=== PATIENT | female | born 1970 | race Two or more races ===

== ENCOUNTER 2016-09-14 20:52 | Emergency (ER) | payer MEDICAID, OTHER ==
[~2016-09-14] VITALS: Ht 152.4 cm; Wt 69.4 kg
[~2016-09-14 20:52] MED LIST: QUET25TA PO
[2016-09-14] MEDS ORDERED: METOCLOPRAMIDE HCL 10 MG/2 ML VIAL IV ONE (22:30)
[2016-09-14] MEDS ORDERED: SUMATRIPTAN SUCCINATE 6 MG/0.5 ML VIAL SQ ONE ×2 (22:30→23:12)
[2016-09-14 22:49] LABS: BASOPHILS % (AUTO) 0.4 % (0.0-2.0); DIFF TOTAL % 100 %; EOSINOPHILS # (AUTO) 0.1 /CMM (0.0-0.7); HEMATOCRIT 36 % (33-45); HEMOGLOBIN 11.9 g/dL (11.5-14.8); LYMPHOCYTES # (AUTO) 1.4 /CMM (0.8-4.8); LYMPHOCYTES % (AUTO) 19.1 % (20.0-44.0); MEAN CORPUSCULAR HEMOGLOBIN 27 PG (26.0-33.0); MEAN CORPUSCULAR HGB CONC 33 g/dl (31.0-36.0); MEAN CORPUSCULAR VOLUME 82 fL (82-100); MONOCYTES # (AUTO) 0.7 /CMM (0.1-1.30); MONOCYTES % (AUTO) 8.8 % (2.0-12.0); NEUTROPHILS # (AUTO) 5.3 /CMM (1.8-8.9); NEUTROPHILS % (AUTO) 70.7 % (43.0-81.0); PLATELET COUNT (AUTO) 358 /CMM (150-450); RED BLOOD CELL COUNT(AUTO) 4.34 MIL/uL (4.0-5.2); WHITE BLOOD COUNT (AUTO) 7.4 K/uL (4.3-11.0)
[2016-09-14 22:52] LABS: KETONES,URINE NEGATIVE (NEGATIVE); LEUKOCYTE ESTERASE ,URINE 1+ (NEGATIVE)
[2016-09-14 23:01] LABS: ADD UA MICROSCOPIC YES; POTASSIUM 3.4 mmol/L (3.5-5.1)
[2016-09-14 23:12] LABS: ADD URINE CULTURE YES; RBC,URINE NONE SEEN /HPF (0-2); WBC,URINE 0-2 /HPF (0-3)
[2016-09-14] MEDS ORDERED: METOCLOPRAMIDE HCL 10 MG/2 ML VIAL ONE (23:12)
[2016-09-14] MEDS ORDERED: MECLIZINE HCL 25 MG TABLET ONE (23:55)
[2016-09-15] MEDS ORDERED: MECLIZINE HCL 25 MG TABLET PO ONE
[2016-09-15 00:55] VITALS: BP 150/86
== END 2016-09-15 00:56 | disposition home or self-care (01) ==
LOC: ER 21:02
DX: R42 Dizziness and giddiness (principal); I10 Essential (primary) hypertension; F20.9 Schizophrenia, unspecified; R82.79 Other abnormal findings on microbiological examination of urine
CPT/HCPCS: 36415; 70450; 80048; 81001; 85025; 87086; 96372; 96374; 99285; A4606; J2765; J3030; J8597; Z7610; 81000-TC

== ENCOUNTER 2020-01-21 11:16 | Emergency (ER) | payer OTHER ==
[~2020-01-21] VITALS: Ht 154.9 cm; Wt 80.7 kg
--- NOTE | 2020-01-21 11:30 | NUR ---
patient came in to the er c/o Dizziness x 2 days; felt " room-spinning sensation". On room air, breathing evenly and unlabored. connected to the monitor and pulse ox. kept comfortable, will continue to monitor accordingly.
[2020-01-21] MEDS ORDERED: MECLIZINE HCL 12.5 MG TABLET PO ONE (12:00)
[2020-01-21] MEDS ORDERED: IV NS 0.9% 1,000 ML BAG IV ONE (12:00)
[2020-01-21] MEDS ORDERED: ONDANSETRON HCL/PF 4 MG/2 ML VIAL IVP ONE (12:00)
[2020-01-21] MEDS ORDERED: ONDANSETRON HCL/PF 4 MG/2 ML VIAL ONE (12:01)
[2020-01-21] MEDS ORDERED: MECLIZINE HCL 25 MG TABLET ONE (12:01)
[2020-01-21 12:16] LABS: CALCIUM, SERUM 8.4 mg/dL (8.5-10.1); CREATININE 0.9 mg/dL (0.6-1.3); POTASSIUM 3.6 mmol/L (3.5-5.1)
--- NOTE | 2020-01-21 12:18 | NUR ---
PT BACK FROM CT
[2020-01-21 12:22] LABS: ALBUMIN 3.4 g/dL (3.4-5.0); BILIRUBIN,DIRECT 0.1 mg/dL (0.0-0.2); BILIRUBIN,TOTAL 0.2 mg/dL (0.2-1.0)
--- NOTE | 2020-01-21 12:27 | NUR ---
BIBS TO ER BED 16. AAOX4. NOT IN RESP DISTRESS. AMBULATORY. CAME IN FOR DIZZYNESS X 2 DAYS. PER PT THE ROOM IS SPINNING. PT IS REPORTING NAUSEA. MD WAS AT THE BEDSIDE FOR EVAL. ORDERS RECEIVED NOTED AND CARRIED OUT. IV LINE OBTAINED ON THE LFA 20G, BLOOD DRAWNA ND GIVEN TO RN REHAB AT BEDSIDE.
[2020-01-21 12:34] LABS: BASOPHILS % (AUTO) 0.2 % (0.0-2.0); EOSINOPHILS % (AUTO) 0.3 % (0.0-6.0); HEMATOCRIT 38 % (33-45); HEMOGLOBIN 12.2 g/dL (11.5-14.8); LYMPHOCYTES % (AUTO) 17.1 % (20.0-44.0); MEAN CORPUSCULAR HGB CONC 33 g/dl (31.0-36.0); MEAN CORPUSCULAR VOLUME 83 fL (82-100); MONOCYTES # (AUTO) 0.4 /CMM (0.1-1.30); MONOCYTES % (AUTO) 7.3 % (2.0-12.0); NEUTROPHILS # (AUTO) 4.3 /CMM (1.8-8.9); NEUTROPHILS % (AUTO) 75.1 % (43.0-81.0); PLATELET COUNT (AUTO) 319 /CMM (150-450); RED BLOOD CELL COUNT(AUTO) 4.55 MIL/uL (4.0-5.2); WHITE BLOOD COUNT (AUTO) 5.8 K/uL (4.3-11.0)
[2020-01-21 13:44] VITALS: BP 145/81
--- NOTE | 2020-01-21 13:44 | NUR ---
Patient discharged to home in stable condition. Written and verbal after care instructions given. Patient verbalizes understanding of instruction.IV removed. Catheter intact and site benign. Pressure and 4x4 applied to site. No bleeding noted.
== END 2020-01-21 13:44 | disposition home or self-care (01) ==
LOC: ER 11:24
DX: R42 Dizziness and giddiness (principal); E11.9 Type 2 diabetes mellitus without complications; I10 Essential (primary) hypertension; F20.9 Schizophrenia, unspecified; Z79.899 Other long term (current) drug therapy
CPT/HCPCS: 36415; 70450; 80048; 80076; 82962; 83690; 85025; 96361; 96374; 99284; J2405; J7030; J8597

== ENCOUNTER 2020-11-28 13:52 | Emergency (ER) | payer OTHER ==
[~2020-11-28] VITALS: Ht 160 cm; Wt 88.9 kg
--- NOTE | 2020-11-28 14:10 | NUR ---
BIB SELF C/O R EYE STYE FOR 5 DAYS. RATES PAIN 5/10. NO DISCHARGE FROM THE EYE NOTED. WILL CONTINUE TO MONITOR THE PATIENT.
[2020-11-28] MEDS ORDERED: CIPR5DRO EACHEYE (14:35)
[2020-11-28] MEDS ORDERED: DOXY100C2 PO (14:35)
[2020-11-28 14:46] VITALS: BP 136/88
--- NOTE | 2020-11-28 14:46 | NUR ---
Patient discharged to home in stable condition. Written and verbal after care instructions given. Patient verbalizes understanding of instruction. The patient left ER in stable condition.
== END 2020-11-28 14:48 | disposition home or self-care (01) ==
LOC: ER 13:57
DX: H00.013 Hordeolum externum right eye, unspecified eyelid (principal); I10 Essential (primary) hypertension; F20.9 Schizophrenia, unspecified; Z79.899 Other long term (current) drug therapy

== ENCOUNTER 2021-07-02 13:45 | Emergency (ER) | payer OTHER ==
[~2021-07-02] VITALS: Ht 154.9 cm; Wt 83.9 kg
[~2021-07-02 13:45] MED LIST changes: +CIPR5DRO EACHEYE; +DOXY100C2 PO
--- NOTE | 2021-07-02 13:45 | NUR ---
PT A/OX4 C/O BREAST PAIN X 2 DAYS,DENIES ANY TRAUMA.
[2021-07-02 15:47] LABS: BASOPHILS % (AUTO) 0.5 % (0.0-2.0); HEMATOCRIT 38 % (33-45); HEMOGLOBIN 12.8 g/dL (11.5-14.8); LYMPHOCYTES # (AUTO) 1.2 K/uL (0.8-4.8); LYMPHOCYTES % (AUTO) 12.9 % (20.0-44.0); MEAN CORPUSCULAR HGB CONC 33 g/dl (31.0-36.0); MEAN CORPUSCULAR VOLUME 83 fL (82-100); MONOCYTES # (AUTO) 0.7 K/uL (0.1-1.30); MONOCYTES % (AUTO) 7.3 % (2.0-12.0); NEUTROPHILS # (AUTO) 7.1 K/uL (1.8-8.9); NEUTROPHILS % (AUTO) 79.3 % (43.0-81.0); PLATELET COUNT (AUTO) 411 K/uL (150-450)
[2021-07-02 15:55] LABS: CALCIUM, SERUM 8.5 mg/dL (8.5-10.1); CARBON DIOXIDE 26 mmol/L (21-32); CHLORIDE 105 mmol/L (98-107); CREATININE 0.9 mg/dL (0.6-1.3); GLUCOSE 120 mg/dL (74-106); POTASSIUM 3.8 mmol/L (3.5-5.1); SODIUM SERUM 141 mmol/L (136-145); UREA NITROGEN, BLOOD 14 mg/dL (7-18)
[2021-07-02 16:05] LABS: ALANINE AMINOTRANSFERASE 19 U/L (12-78); ALBUMIN 3.7 g/dL (3.4-5.0); ALKALINE PHOSPHATASE 137 U/L (46-116); ASPARTATE AMINOTRANSFERASE 11 U/L (15-37); BILIRUBIN,TOTAL 0.2 mg/dL (0.2-1.0); LIPASE 96 U/L (73-393); TOTAL PROTEIN, SERUM 7.5 g/dL (6.4-8.2)
[2021-07-02] MEDS ORDERED: QUET100T PO (17:01)
--- NOTE | 2021-07-02 17:07 | NUR ---
Patient discharged to home in stable condition. RX Written and verbal after care instructions given. Patient verbalizes understanding of instruction. PT ambulatory with a steady gait
[2021-07-02 17:28] VITALS: BP 162/87
== END 2021-07-02 17:07 | disposition home or self-care (01) ==
LOC: ER 14:30
DX: R07.89 Other chest pain (principal); Z76.0 Encounter for issue of repeat prescription; I10 Essential (primary) hypertension; F20.9 Schizophrenia, unspecified; Z79.899 Other long term (current) drug therapy
CPT/HCPCS: 36415; 71045-TC; 80053-TC; 83690-TC; 84484-TC; 85025-TC

== ENCOUNTER 2022-09-01 12:43 | Emergency (ER) | payer OTHER ==
[~2022-09-01] VITALS: Ht 160 cm; Wt 86.2 kg
[~2022-09-01 12:43] MED LIST changes: +QUET100T PO
[2022-09-01 13:11] VITALS: BP 157/84
--- NOTE | 2022-09-01 13:11 | NUR ---
BIBS C/O HAVING A RASH AND ITCHING X1 WEEK. VITALS ARE WITHIN NORMAL LIMITS. AWAITING MD CRAVEN.
[2022-09-01] MEDS ORDERED: DIPHENHYDRAMINE HCL 12.5 MG/5 ML UDC PO ONE (14:30)
[2022-09-01] MEDS ORDERED: MINE105O TP (14:30)
[2022-09-01] MEDS ORDERED: HYDR15CR41 TP (14:30)
[2022-09-01] MEDS ORDERED: diphenhydrAMINE HCL 25 MG CAPSULE ONE (14:34)
== END 2022-09-01 14:36 | disposition home or self-care (01) ==
LOC: ER 12:45
DX: L30.9 Dermatitis, unspecified (principal); I10 Essential (primary) hypertension; F20.9 Schizophrenia, unspecified; Z79.899 Other long term (current) drug therapy
CPT/HCPCS: 99282; Q0163 ×2

== ENCOUNTER 2025-02-05 20:37 | Emergency (ER) | payer OTHER ==
[~2025-02-05] VITALS: Ht 154.9 cm; Wt 83.9 kg
[~2025-02-05 20:37] MED LIST changes: +HYDR15CR41 TP; +MINE105O TP
[2025-02-06 00:20] LABS: PREGNANCY TEST URINE QUAL NEGATIVE (NEGATIVE)
[2025-02-06 00:25] LABS: APPEARANCE,URINE CLEAR (CLEAR); BLOOD, URINE NEGATIVE Ery/uL (NEGATIVE); LEUKOCYTE ESTERASE ,URINE NEGATIVE (NEGATIVE); NITRITE, URINE NEGATIVE (NEGATIVE); UGLUCOSE 3+ mg/dL (NEGATIVE)
[2025-02-06] MEDS ORDERED: HYDR30CR79 TP (00:29)
[2025-02-06 00:32] LABS: ADD URINE CULTURE NO; SQUAMOUS EPITHELIAL CELL,UR Moderate /HPF (None Seen)
[2025-02-06 01:04] VITALS: BP 157/88; TEMP 98.1; O2SAT 95
== END 2025-02-06 01:05 | disposition home or self-care (01) ==
LOC: ER 20:42
DX: K64.8 Other hemorrhoids (principal); R30.0 Dysuria; I10 Essential (primary) hypertension; F20.9 Schizophrenia, unspecified; Z79.899 Other long term (current) drug therapy
CPT/HCPCS: 81001; 84703-TC

== ENCOUNTER 2025-02-15 08:25 | Emergency (ER) | payer OTHER ==
[~2025-02-15] VITALS: Ht 154.9 cm; Wt 72.6 kg
[~2025-02-15 08:25] MED LIST changes: +HYDR30CR79 TP
[2025-02-15 08:49] VITALS: BP 157/83; TEMP 98.1
[2025-02-15] MEDS ORDERED: FLUC150T PO (09:07)
[2025-02-15 09:11] VITALS: O2SAT 98
== END 2025-02-15 09:12 | disposition home or self-care (01) ==
LOC: ER 08:25
DX: N89.8 Other specified noninflammatory disorders of vagina (principal); B37.9 Candidiasis, unspecified; F20.9 Schizophrenia, unspecified; R21 Rash and other nonspecific skin eruption; I10 Essential (primary) hypertension; Z79.899 Other long term (current) drug therapy